=== PATIENT | male | born 1970 | race Caucasian/White ===

== ENCOUNTER 2017-09-21 07:22 | Emergency (ER) | payer BC, OTHER ==
[2017-09-21 07:35] VITALS: BP 167/113
[2017-09-21] MEDS ORDERED: Clindamycin CAP* 150 MG PO ONE (08:03)
--- NOTE | 2017-09-21 08:15 | UC ---
Skin Complaint HPI - HPI Summary HPI Summary: Patient presents with a history of sebaceous cysts, with cervical reactive lymphadenopathy. He states he has a habit of picking at his scalp. He states he now has a red, raised area on the back of his head with swollen lymph nodes on the back of his neck. He denies any fever, chills, drainage from the site. He states this is the typical presentation when he is getting an infection. - History of Current Complaint Chief Complaint: UCSkin Time Seen by Provider: 09/21/17 07:53 Stated Complaint: SKIN ISSUE Hx Obtained From: Patient Onset/Duration: Gradual Onset, Lasting Days Skin Exposure Onset/Duration: Days Ago Onset Severity: Mild Current Severity: Moderate Pain Intensity: 3 Location: Discrete - occipital area back of head. Character: Swelling, Raised, Painful Aggravating Factor(s): Touch Alleviating Factor(s): Nothing Associated Signs & Symptoms: Positive: Tenderness - Allergy/Home Medications Allergies/Adverse Reactions: Allergies Allergy/AdvReac Type Severity Reaction Status Date / Time Sulfa (Sulfonamide Allergy Intermediate Swelling Verified 09/21/17 07:37 Antibiotics) amoxicillin [From Augmentin] Allergy Rash Verified 09/21/17 07:37 clavulanic acid Allergy Rash Verified 09/21/17 07:37 [From Augmentin] Home Medications: Home Medications Metoprolol Dhaliwal/Hydrochlorothiaz [Metoprolol Succinate ER/H 25-12.5 mg] 1 tab PO DAILY WITH MEAL 09/21/17 [History Confirmed 09/21/17] Review of Systems Constitutional: Negative Skin: Other - red, raised area on back of head Eyes: Negative ENT: Negative, Other - swollen lymph nodes back of neck Respiratory: Negative Cardiovascular: Negative Gastrointestinal: Negative Genitourinary: Negative Motor: Negative Neurovascular: Negative Musculoskeletal: Negative Neurological: Negative Psychological: Negative Is Patient Immunocompromised?: No All Other Systems Reviewed And Are Negative: Yes PMH/Surg Hx/FS Hx/Imm Hx Previously Healthy: Yes - Surgical History Surgical History: Yes Surgery Procedure, Year, and Place: ACL replaced 2000. Hernia 2009 - Family History Known Family History: Positive: Cardiac Disease, Hypertension - Social History Occupation: Employed Full-time Lives: Alone Alcohol Use: Rare Substance Use Type: None Smoking Status (MU): Never Smoked Tobacco Physical Exam Triage Information Reviewed: Yes Appearance: Well-Appearing Vital Signs: Initial Vital Signs Temp 98.9 F 09/21/17 07:31 Pulse 82 09/21/17 07:31 Resp 16 09/21/17 07:31 BP 167/113 09/21/17 07:31 Pulse Ox 100 09/21/17 07:31 Vital Signs Reviewed: Yes Eye Exam: Normal ENT Exam: Normal Neck exam: Normal Neck: Positive: 1 Respiratory Exam: Normal Cardiovascular Exam: Normal Abdominal Exam: Normal Musculoskeletal Exam: Normal Neurological Exam: Normal Psychological Exam: Normal Skin: Positive: Other - occipital area of head, 2.0 cm circular red, raised indurated area. well localized, with left sided posterior cervical lymphadneooathy. Course/Dx - Course Course Of Treatment: Patient presents with a history of sebaceous cysts, and associated lymphadenopathy. He presents today with similar sym[toms, and clincial presentation. He has an indurated cyts on the occipatal area of his head that was not flucuante. I gave his clindymycin 300 mg tablet in the department and he was discharged with an addition 10 course. I did have some cercnerns about the posterior cervical lymphadenpathy, and did recommend that he follow up in 48 hours with his PCP. Most likley the lymphadenopathy is reactive, but of more concern that it could be cancerous. He was told to follow up, he verbalized understanding and was in a greement with the discharge plan. - Differential Diagnoses - Skin Complaint Differential Diagnoses: Other - cyst lymohadenopathy - Diagnoses Provider Diagnoses: cyst. lymphadenopathy Discharge - Discharge Plan Condition: Stable Disposition: HOME Prescriptions: Clindamycin HCl 300 mg PO TID #30 capsule Patient Education Materials: Lymphadenopathy (ED), Cyst (ED) Referrals: Branden Coppola MD [Primary Care Provider] - Additional Instructions: You should follow up with your doctor in 48 hours to re-evaluate the posterior cervical lymphadenopathy.
== END 2017-09-21 08:16 | disposition home or self-care (01) ==
LOC: UCEAST 07:22
DX: L72.9 Follicular cyst of the skin and subcutaneous tissue, unspecified (principal); Z88.2 Allergy status to sulfonamides
CPT/HCPCS: 99212; A9270-GY; G0463